=== PATIENT | male | born 1995 | race Caucasian/White ===

== ENCOUNTER 2019-06-22 18:52 | Emergency (ER) | payer SELFPAY ==
[2019-06-22 18:52] VITALS: BP 132/99; PULSE 100; RESP 18; TEMP 36.6; O2SAT 98; BMI 32.3
[2019-06-22 19:02] VITALS: RESP 16
--- NOTE | 2019-06-22 19:16 | RAD_ITS ---
STUDY: X-RAY - RIGHT ANKLE REASON FOR EXAM: Male, 24 years old. PT INJURED RT ANKLE AROUND 0730 AM. PT STATES HAS NOT BEEN ABLE TO PUT FULL WEIGHT ON IT TECHNIQUE: 3 view(s) of the ankle. COMPARISON: None. FINDINGS: Normal visualized distal tibia and fibula. Normal medial and lateral malleoli. Normal tibiotalar articulation and ankle mortise. Normal visualized talus and calcaneus. The visualized subtalar, talonavicular, calcaneocuboid and tarsal articulations are normal. There is lateral soft tissue swelling. RAD/Ankle min 3 Views IMPRESSION: No acute osseous injury. Lateral soft tissue swelling. Electronically Signed: Natalya Alvarado, at 19:38 EST Tel , Service support ,
--- NOTE | 2019-06-22 19:50 | ED.VISSUMM ---
- ER Visit Summary Date of Service: 06/22/19 Chief Complaint: Right ankle pain History of Present Illness: The patient is a 24 M with no primary care physician. Reports this morning he stepped on a uneven area and had a forced area inversion injury of his right ankle. Reports he has a pain is 8 out of 10 when he walks and 3-10 currently. Is improved by ibuprofen. Describes it as sharp. He denies any other injuries. Physical Examination: Vitals: Stable. Afebrile. General: Well-nourished and well-developed. Head: Normocephalic atraumatic. Neck: Supple, no lymphadenopathy. No JVD. Nontender. Cardiovascular: Regular rate and rhythm. No murmurs. Respiratory: No respiratory distress. Clear to auscultation bilaterally. Abdominal: Soft, nontender, nondistended, normal bowel sounds. No guarding, rebound, or peritoneal signs. Back: Nontender. Extremities: Moderate tenderness outpatient over the lateral malleolus on the right. No pain over the medial malleolus. No pain over the proximal fibular base the fifth metatarsal. Is nervous intact distally. Skin: Normal color, no rash. Neurologic: Alert and oriented ?3. Cranial nerves II through XII are intact. Normal strength and sensation. Psych: Normal affect. Test Results: Clinical Impression(s) from Imaging Studies Ankle X-Ray 06/22/19 19:16 IMPRESSION: No acute osseous injury. Lateral soft tissue swelling. Electronically Signed: Natalya Jenny, at 19:38 EST Tel , Service support , Emergency Department Course and Treatment: Patient was given naproxen and crutches. He is resting comfortably. Treatment Plan: Patient be discharged instructions follow-up his primary care physician 1 week if not improving. Return to the emergency department for any worsening symptoms. Disposition: To home in improved and stable condition. Impression: 1. Right ankle sprain. This note was generated with [employer] software. It may contain incorrect words, spelling, and punctuation that were not noted in review of the chart prior to signing ED Disposition - Plan for ED Patient: Disposition: Home or Assisted Living Instructions: Sprain, Ankle, with X-Ray Prescriptions: Naproxen [Naprosyn] 500 mg PO BID #14 tab Prescription Printed Referrals: Doctor,Your [STAFF PHYSICIAN] - 1 Week if not improving
[2019-06-22 20:20] VITALS: BP 120/68; PULSE 93; RESP 18; O2SAT 97
== END 2019-06-22 20:20 | disposition home or self-care (01) ==
PROVIDERS: Emergency Provider Emergency Medicine
DX: S93.401A Sprain of unspecified ligament of right ankle, initial encounter (principal); X50.1XXA Overexertion from prolonged static or awkward postures, initial encounter; Y93.9 Activity, unspecified; Y92.9 Unspecified place or not applicable; Y99.9 Unspecified external cause status; Z72.0 Tobacco use
CPT/HCPCS: 73610; 99283